=== PATIENT | male | born 1970 | race Caucasian/White ===

== ENCOUNTER → 2017-07-28 | Day surgery (SDC) | payer BC ==
[~2017-07-28] VITALS: Ht 182.9 cm; Wt 81.6 kg
[~2017-07-28] MED LIST: LIDOCAINE 1% INJ 20 ML (XYLOCAINE) VIAL INJ ONE; LIDOCAINE 1% INJ 50 ML (XYLOCAINE) VIAL ONE; fentaNYL INJECTION 100 MCG/2 ML AMP IVP ONE; fentaNYL INJECTION 100 MCG/2 ML AMP ONE
[2017-07-28 12:49] VITALS: BP 128/67
[2017-07-28 13:13] LABS: MEAN PLATELET VOLUME 10.9 FL (7.4-10.4); RED BLOOD COUNT 4.62 10^6/uL (4.35-5.85); RED CELL DISTRIBUTION WIDTH 13.2 % (10.0-14.5); WHITE BLOOD COUNT 7.8 10^3/uL (4.3-11.0)
--- OUTSIDE RECORDS SUMMARY | 2017-07-28 13:15 | XMS REPORT | CCD ---
Author Author MISSAEL DENNIS Organization Unknown Address [address] [facility] [address] [place], [place] [id number] Care Team Providers Care Loan Review Officer Name Role Phone MOORE, ALEK DO Attphys MOORE, ALEK DO Prisurg Vital Signs Unknown or Not Available. Allergies Allergy Code Allergy Type Reaction Status No Known Allergies 0 No known allergies Active Procedures Procedure Code Procedure Type Date CT ABD AND PELVIS W/CONTRAST 490859625 SNOMED CT 2014 ABDOMEN ACUTE SERIES 1171386 SNOMED CT 04/18/2015 ^CBC W/ MANUAL DIFF 67185969 SNOMED CT 04/18/2015 ^UA AUTO DIPSTICK ONLY 431731721 SNOMED CT 04/18/2015 UA ROUTINE C&S IF IND 887424016 SNOMED CT 04/18/[address] 04/18/2015 TROPONIN-I ADV 978067247 SNOMED CT 04/18/2015 COMPREHENSIVE METABOLIC PANEL 345826301 SNOMED CT 2014 CBC W/ AUTO DIFF (RFLX MAN DIFF IF IND) 9358082 SNOMED CT 04/18/2015 LOCM 300-349 MG/ML, PER ML 658895496 SNOMED CT 04/18/2015 History of Immunizations Unknown or Not Available. Problems Problem Code Start Date Resolved Date Status Primary osteoarthritis of right knee 232225280 Active Post op pain 977503775 07/20/2014 Active Results COMPREHENSIVE METABOLIC PANEL - Collect Date/Time: 04/18/2015 05:05 Test Name Code Test Result Test Units Test Ref Range GLUCOSE 2345-7 116 MG/DL L=70 H=100 SODIUM 2951-2 139 MEQ/L L=135 H=148 POTASSIUM 2823-3 4.0 MEQ/L L=3.5 H=5.3 CHLORIDE 2075-0 102 MEQ/L L=96 H=110 CO2 2028-9 25 MEQ/L L=22 H=29 BUN 3094-0 19 MG/DL L=8 H=22 CREATININE 2160-0 0.9 MG/DL L=0.6 H=1.6 SGOT/AST 1920-8 31 IU/L L=10 H=40 SGPT/ALT 1742-6 69 IU/L L=8 H=54 ALK PHOS 6768-6 56 IU/L L=35 H=115 TOTAL PROTEIN 2885-2 7.7 G/DL L=5.5 H=8.5 ALBUMIN 1751-7 4.7 G/DL L=3.1 H=5.4 TOTAL BILI 1975-2 0.4 MG/DL L=0.0 H=1.5 CALCIUM 98902-9 9.6 MG/DL L=8.2 H=10.6 AGE 44 yrs GFR NonAA 91 GFR AA 110 eGFR >60 N/A eGFR AA* >60 N/A LIPASE - Collect Date/Time: 04/18/2015 05:05 Test Name Code Test Result Test Units Test Ref Range LIPASE 3040-3 41 U/L L=8 H=78 CBC W/ AUTO DIFF (RFLX MAN DIFF IF IND) - Collect Date/Time: 04/18/2015 05:05 Test Name Code Test Result Test Units Test Ref Range WBC 28175-4 19.3 TH/CMM L=4.5 H=10.8 RBC 789-8 4.99 ML/CMM L=4.70 H=6.10 HGB 718-7 15.4 G/DL L=14.0 H=18.0 HCT 4544-3 46.1 % L=42.0 H=52.0 MCV 92 FL L=81 H=99 MCH 30.9 PG L=27.0 H=33.0 MCHC 33.4 G/DL L=31.0 H=36.0 RDW SD 45 FL L=36 H=50 RDW CV 13.4 % L=0.0 H=14.8 MPV 11.0 FL L=9.3 H=12.5 PLT 777-3 291 TH/CMM L=130 H=440 NRBC# 0.00 TH/CMM L=0.00 H=0.00 NRBC% 0.0 /100WBC L=0.0 H=2.0 %NEUT 79.0 % %LYMP 15.1 % %MONO 5.0 % %EOS 0.7 % %BASO 0.2 % #NEUT 15.21 TH/CMM L=2.10 H=8.20 #LYMP 2.91 TH/CMM L=0.90 H=5.20 #MONO 0.97 TH/CMM L=0.16 H=1.00 #EOS 0.13 TH/CMM L=0.00 H=0.80 #BASO 0.03 TH/CMM L=0.00 H=0.20 SEGS 63 % BANDS 13 % LYMPHS 18 % MONOS 6 % MANUAL DIFF SEE BELOW N/A UA ROUTINE C&S IF IND - Collect Date/Time: 04/18/2015 05:14 Test Name Code Test Result Test Units Test Ref Range COLOR YELLOW N/A NL: YELLOW APPEARANCE CLEAR N/A NL: CLEAR SPEC GRAV 1.025 N/A NL: 1.002 - 1.022 pH 6.0 N/A NL: 5 - 9 PROTEIN NEGATIVE N/A NL: NEGATIVE mg/dl GLUCOSE NEGATIVE N/A NL: NEGATIVE mg/dl KETONE NEGATIVE N/A NL: NEGATIVE mg/dl BILIRUBIN NEGATIVE N/A NL: NEGATIVE BLOOD NEGATIVE N/A NL: NEGATIVE NITRITE NEGATIVE N/A NL: NEGATIVE LEUK SCREEN NEGATIVE N/A NL: NEGATIVE MICRO INDICATED? NOT INDICATED N/A TROPONIN-I ADV - Collect Date/Time: 04/18/2015 05:05 Test Name Code Test Result Test Units Test [place] [address]-8 <0.04 ng/mL L=0.04 H= 0.40 Active Medications Medication Code Dose Units Frequency Route Modification Start Date/Time Aspirin 325MG Oral Tablet, Enteric Coated 853167 1 TABLET EVERY 12 HOURS BY MOUTH 07/21/2014 07:21 Prescription Detail 1 TABLET BY MOUTH EVERY 12 HOURS begin 24hrs after the last xarelto dose Allopurinol 300MG Oral Tablet 922220 300 MILLIGRAMS DAILY ORAL 07/21/2014 07:18 Prescription Detail 300 MILLIGRAMS ORAL DAILY Diclofenac Sod 75MG Oral Tablet, Enteric Coated 093596 75 MILLIGRAMS TWO TIMES A DAY ORAL 07/21/2014 07:18 Prescription Detail 75 MILLIGRAMS ORAL TWO TIMES A DAYHold until 24hrs after last Xarelto dose Docusate Sodium 100MG Oral Capsule 9537108 100 MILLIGRAMS TWO TIMES A DAY BY MOUTH 07/21/2014 07:18 Prescription Detail 100 MILLIGRAMS BY MOUTH TWO TIMES A DAYHold with loose stools HYDROcodone bitartrate-acetaminophen 325MG-10MG Oral Tablet 646694 1/2 - 1 TABLET NEEDED EVERY 4 HR BY MOUTH FOR PAIN 07/21/2014 07:18 Prescription Detail 1/2 - 1 TABLET BY MOUTH NEEDED EVERY 4 HR FOR PAIN Lisinopril and Hydrochlorothiazide 12.5MG-20MG Oral Tablet 884452 1 EACH DAILY ORAL 07/21/2014 07:18 Prescription Detail 1 EACH ORAL DAILY Omeprazole 20MG Oral Tablet, Delayed Release 336269 20 MILLIGRAMS DAILY ORAL 07/21/2014 07:18 Prescription Detail 20 MILLIGRAMS ORAL DAILY Pravastatin Sodium 40MG Oral Tablet 593800 40 MILLIGRAMS DAILY ORAL 07/21/2014 07:18 Prescription Detail 40 MILLIGRAMS ORAL DAILY Thera-M Enhanced 90MG-0.03MG-0.15MG-4 Oral Tablet 208978 1 TABLET DAILY BY MOUTH 07/21/2014 07:18 Prescription Detail 1 TABLET BY MOUTH DAILY Xarelto 10MG Oral Tablet 0549452 10 MILLIGRAMS DAILY BY MOUTH 07/21/2014 07:18 Prescription Detail 10 MILLIGRAMS BY MOUTH DAILY Medications Administered During Visit Unknown or Not Available. Encounters Encounter Diagnosis Diagnosis Code Start Date ABDOMINAL PAIN, LEFT UPPER QUADRANT 18975 04/18/2015 Social History Smoking Status Code Start Date End Date Former smoker 1073442 Patient Decision Aids Unknown or Not Available. Discharge Instructions You were admitted to [facility] on 04/18/2015 with a principal diagnosis of ABDOMINAL PAIN, LEFT UPPER QUADRANT. You were discharged from [facility] on 04/18/2015. Should you have any questions prior to discharge, please contact a member of your healthcare team. If you have left the hospital and have any questions, please contact your primary care physician. Chief Complaint and Reason For Visit Chief Complaint Date of Onset ABDOMINAL PAIN AND CRAMPING Function Status Unknown or Not Available. Plan of Care Unknown or Not Available. Referral/Transition of Care Unknown or Not Available.
--- OUTSIDE RECORDS SUMMARY | 2017-07-28 13:15 | XMS REPORT | Continuity of Care Document ---
Author Author [facility] Address Unknown Phone Unavailable Allergies There is no data. Medications There is no data. Problems There is no data. Procedures There is no data. Results There is no data. Encounters ACCT No. Visit Date/Time Discharge Status Pt. Type Provider Facility Loc./Unit Complaint [id number] 06/11/2015 16:54:43 06/11/2015 23:59:59 CLS Outpatient Andres Carrillo
[2017-07-28 13:35] LABS: INR 0.9 (0.8-1.4); PROTHROMBIN TIME PATIENT 12.3 SEC (12.2-14.7)
--- NOTE | 2017-07-28 16:19 | Diagnostic Imaging Report ---
EXAMINATION: Fluoroscopy-guided biopsy-lumbar disc. INDICATION: L2/3 disc and adjacent marrow changes with concern for possible infection. Current history and physical and other medical records are reviewed prior to the procedure. CONSENT: Informed consent was obtained from the patient. The risks, benefits, potential complications and alternatives were reviewed and all questions answered to the patient's satisfaction. The patient's vital signs, cardiac rhythm, and pulse oximetry were observed throughout the procedure by qualified nursing personnel. Sedation/medications: fentanyl 75mcg. FINDINGS: disc degeneration with adjacent marrow edema. PROCEDURE: After maximal sterile barrier technique preparation and draping, 1% lidocaine was utilized for local anesthesia. With the patient in prone position, and via left paraspinal approach, a 17-gauge guide needle is introduced into the left L2/[address] scan guidance. After confirming adequate positioning with saved CT images, multiple 18 gauge core biopsy specimens were obtained. The specimens were sent for cultures. The patient tolerated the procedure well with no immediate complications. IMPRESSION: Successful CT-guided biopsy of left L2/3 disc. Dictated by: Dictated on workstation # [id number]
== END | disposition home or self-care (01) ==
LOC: CATH 12:29
DX: M48.07 Spinal stenosis, lumbosacral region (principal); M48.061 Spinal stenosis, lumbar region without neurogenic claudication; M54.16 Radiculopathy, lumbar region; I10 Essential (primary) hypertension; E78.00 Pure hypercholesterolemia, unspecified; M10.9 Gout, unspecified; Z79.899 Other long term (current) drug therapy
CPT/HCPCS: 36415; 85027; 85610; 85730; 87070; 87075; 87205